=== PATIENT | female | born 1955 | race Caucasian/White ===

== ENCOUNTER 2017-07-04 21:06 | Emergency (ER) | payer OTHER ==
[~2017-07-04] VITALS: Ht 162.5 cm; Wt 120.2 kg
[~2017-07-04 21:06] MED LIST: ALBUTEROL0.09 MG/A2 IH; LEVAQUIN750 MG PO; MEDROL DOSEPAK4 MG PO; PREDNISONE20 M1 PO; PROAIR HFA8.5 GM INH; ZITHROMAX250 MG PO
[2017-07-04] MEDS ORDERED: CLARITIN10 MG PO (21:20)
[2017-07-04] MEDS ORDERED: FLONASE ALLERG9.9 ML NAS (21:20)
[2017-07-04 22:16] LABS: BASO % 0.2 % (0.0-1.0); EOS % 0.2 % (1.0-4.0); HEMATOCRIT 45.1 % (37.0-47.0); LYMPH # 0.7 10*3/uL (1.3-4.4); LYMPH % 7.3 % (27.0-41.0); MEAN CELL VOLUME 98.3 fl (81.0-99.0); MEAN CORPUSCULAR HGB 30.5 pg (27.0-31.0); MEAN PLATELET VOLUME 10.2 fl (9.6-12.3); MONO # 0.7 10*3/uL (0.1-1.0); MONO % 6.9 % (3.0-9.0); PLATELET COUNT AUTOMATED 288 10*3/uL (130-400); RED BLOOD COUNT 4.59 10*6/uL (4.10-5.10); RED CELL DISTRI WIDTH 13.3 % (0-14.5); WHITE BLOOD COUNT 9.4 10*3/uL (4.8-10.8)
[2017-07-04 22:33] LABS: ALBUMIN 3.3 gm/dl (3.1-4.5); ALKALINE PHOSPHATASE 82 U/L (45-117); BUN 19 mg/dl (7-24); CHLORIDE 99 mmol/L (98-107); CREATININE 0.79 mg/dL (0.55-1.02); POTASSIUM 4.1 mmol/L (3.5-5.1); SGOT/AST 22 IU/L (3-35); SGPT/ALT 16 U/L (12-78); SODIUM 136 mmol/L (136-145); TOTAL PROTEIN 6.9 gm/dL (6.4-8.2)
[2017-07-04] MEDS ORDERED: DELTASONE20 M1 PO (22:43)
== END 2017-07-04 22:47 | disposition home or self-care (01) ==
LOC: ED 21:06
PROVIDERS: Physician Assistant
DX: J40 Bronchitis, not specified as acute or chronic (principal); F17.200 Nicotine dependence, unspecified, uncomplicated; Z79.899 Other long term (current) drug therapy

== ENCOUNTER → 2023-07-28 | Outpatient (CLI) | payer OTHER ==
[~2023-07-28] MED LIST changes: +CLARITIN10 MG PO; +DELTASONE20 M1 PO; +FLONASE ALLERG9.9 ML NAS
== END | disposition home or self-care (01) ==
LOC: LAB 12:13
PROVIDERS: ATTEND Nurse Practitioner
DX: E87.5 Hyperkalemia (principal)